=== PATIENT | male | born 1935 | race Caucasian/White ===

== ENCOUNTER 2016-12-07 05:53 | Day surgery (SDC) | payer MEDICARE, BC ==
[2016-12-07] MEDS ORDERED: Dextrose 5%-Lactated Ringers 1,000 ML IV SCH (06:00)
[2016-12-07] MEDS ORDERED: Propofol 200 MG/20 ML SDV ONE (07:14)
[2016-12-07] MEDS ORDERED: fentaNYL 100 MCG/2 ML SDV ONE (07:14)
[2016-12-07 09:16] VITALS: BP 164/92
--- NOTE | 2016-12-11 16:09 | OR ---
DATE OF PROCEDURE: 12/07/2016 PREOPERATIVE DIAGNOSIS: History of Mccann's esophagus. POSTOPERATIVE DIAGNOSES: 1. History of Mccann's esophagus. 2. Mild antral gastritis. OPERATIVE PROCEDURE: 1. Esophagogastroduodenoscopy with:. a. Biopsies of antrum for CLOtest. b. Biopsies of esophagogastric junction for histologic evaluation. ANESTHESIA: IV sedation. INDICATION FOR PROCEDURE: This is an 81-year-old male presenting with history of Mccann's esophagus for followup surveillance biopsies. Presently, he is on omeprazole mg b.i.d. and he has with that good symptom control of his reflux. The plan is to proceed with upper GI endoscopy with biopsies as indicated. Potential risks including bleeding and perforation were discussed, and the patient wishes to proceed. DETAILS OF PROCEDURE: The patient was taken to the operating room and placed in the left lateral decubitus position. IV sedation was administered, after which the upper GI endoscope was passed orally through the length of the esophagus into the stomach with retroflexion view of the fundus, thereafter through the pyloric channel and into the proximal duodenum. Findings included normal hypopharynx, larynx, upper esophageal sphincter, and esophageal body. At the EG junction, there was a fairly wide open esophagogastric junction with minimal hiatal hernia. There was some upward extension of the gastroesophageal junction mucosal line above the upper gastric folds consistent with some Mccann's esophagus. There was minimal gross inflammation. However, no signs of neoplastic changes or stricturing. Within the remainder of the stomach, there was a small amount of redness and patches in the antrum. The pyloric channel and duodenum to the junction of the third and fourth portions were unremarkable. The scope was then retracted back into the antrum where biopsies were obtained for CLOtest for H. pylori. Following this, multiple biopsies were obtained circumferentially from the esophagogastric junction and sent for histologic evaluation. Minimal bleeding from the biopsy sites was seen, and the procedure then concluded. Recommendation would be to continue the present PPI regimen. Should the CLOtest be positive, we would set him up on one of the anti H. pylori antibiotic regimens. Otherwise, assuming his health remains reasonably good, a repeat upper endoscopy should be performed in 2 years. Irwin Odell MD /[id number]
== END 2016-12-07 09:35 | disposition home or self-care (01) ==
LOC: JP.SDS 05:53
PROVIDERS: ATTEND Surgery
DX: K22.70 Barrett's esophagus without dysplasia (principal); K21.0 Gastro-esophageal reflux disease with esophagitis; E78.5 Hyperlipidemia, unspecified
CPT/HCPCS: 43239; 87081; 88305; J2704; J3010; J7042

== ENCOUNTER 2016-12-27 14:44 | Emergency (ER) | payer MEDICARE, BC ==
[2016-12-27 17:19] VITALS: BP 171/91
--- NOTE | 2016-12-27 17:33 | EDM.PDOC ---
ED HISTORY OF PRESENT ILLNESS - General Chief Complaint: Respiratory Problem Stated Complaint: COUGH, SINUS PRESSURE Time Seen by Provider: 12/27/16 17:32 Source: Reports: Patient, Family History Limitations: Reports: No limitations - History of Present Illness INITIAL COMMENTS - FREE TEXT/NARRATIVE: pt arrived with history of a cough that started 2 days ago, He states he is coughing up thick green sputum. He was placed on flomax and he is not able to tolerate it it makes him liteheaded. Timing/Duration: Reports: Hour(s):, Getting worse Severity: moderate Location, General: Reports: chest Associated Symptoms: Reports: cough, shortness of breath - Related Data Allergies/ADRs: Allergies Allergy/AdvReac Type Severity Reaction Status Date / Time tamsulosin Allergy Cannot Verified 12/27/16 17:24 Remember Home Meds: Home Meds Aspirin [Adult Low Dose Aspirin EC] 81 mg PO DAILY 04/22/14 [History] Multivitamin [Multi-Vitamin Daily] 1 tab PO DAILY 04/22/14 [History] Omeprazole 20 mg PO BID 04/22/14 [History] Simvastatin [Zocor] 20 mg PO BEDTIME 04/22/14 [History] Fluticasone Propionate [Flonase] 2 spray SANTIAGO DAILY 11/11/14 [History] Calcium Carbonate/Vitamin D3 [Calcium 600 + D3 Softgel] 1 tab PO DAILY 12/04/16 [History] Tamsulosin [Tamsulosin 24 Hr] 0.4 mg PO DAILY 12/04/16 [History] Terbinafine [LamISIL AT 1% Crm] 1 applic TOP BID 12/04/16 [History] Past Medical History HEENT History: Reports: Hard of hearing, Impaired vision Other HEENT History: wears glasses, bilat hearing aides Cardiovascular History: Reports: High cholesterol Gastrointestinal History: Reports: Colon polyp, GERD, Hemorrhoids, Other (see below) Other Gastrointestinal History: Mccann's esophagus Genitourinary History: Reports: BPH Musculoskeletal History: Reports: Fracture Dermatologic History: Reports: Other (see below) Other Dermatologic History: fungal infection toes - Infectious Disease History Infectious Disease History: Reports: Other (see below) Other Infectious Disease History: unable to obtain - Past Surgical History GI Surgical History: Reports: Colonoscopy, EGD, Hernia, inguinal, Polypectomy Social & Family History - Family History Family Medical History: Noncontributory - Tobacco Use Smoking Status *Q: Current Status Unknown Years of Tobacco use: 45 Used Tobacco, but Quit: Yes Month Tobacco Last Used: 1999 Second Hand Smoke Exposure: No - Caffeine Use Caffeine Use: Reports: Coffee - Alcohol Use Days Per Week of Alcohol Use: 0 - Recreational Drug Use Recreational Drug Use: No ED ROS GENERAL - Review of Systems Review Of Systems: See Below Constitutional: Reports: weakness HEENT: Reports: No symptoms Respiratory: Reports: Shortness of Breath, Wheezing, Cough Cardiovascular: Reports: No symptoms Endocrine: Reports: no symptoms GI/Abdominal: Reports: No symptoms : Reports: no symptoms Musculoskeletal: Reports: no symptoms Skin: Reports: no symptoms ED EXAM, GENERAL - Physical Exam Exam: See Below Free Text/Narrative:: Mk arrived with a history of a cough which started 2 days ago. He has not had a fever but he has hd some chilling. Exam Limited By: No limitations General Appearance: alert, anxious Ears: normal TMs Nose: normal inspection Throat/Mouth: Normal inspection Head: atraumatic Neck: normal inspection Respiratory/Chest: decreased breath sounds, wheezing Cardiovascular: regular rate, rhythm GI/Abdominal: soft, non tender (Male) Exam: Deferred Rectal (Males) Exam: Deferred Back Exam: CVA tenderness (L) Extremities: normal inspection Neurological: alert, oriented, normal cognition Course - Vital Signs Last Recorded V/S: Last Vital Signs Temp 37.2 C 12/27/16 17:18 Pulse 87 12/27/16 17:18 Resp 16 12/27/16 17:18 BP 171/91 H 12/27/16 17:18 Pulse Ox 96 12/27/16 17:18 - Orders/Labs/Meds Orders: Active Orders 24 hr Category Date Time Status RT Aerosol Therapy [RC] ASDIRECTED Care 12/27/16 17:42 Active Chest 1V Frontal [CR] Stat Exams 12/27/16 17:41 Taken Labs: Laboratory Tests 12/27/16 12/27/16 Range/Units 17:32 17:32 WBC 7.0 (4.5-11.0) K/uL RBC 3.89 L (4.30-5.90) M/uL Hgb 13.2 (12.0-15.0) g/dL Hct 38.0 L (40.0-54.0) % MCV 98 (80-98) fL MCH 34 H (27-31) pg MCHC 35 (32-36) % Plt Count 246 (150-400) K/uL Neut % (Auto) 79 H (36-66) % Lymph % (Auto) 9 L (24-44) % [place] % (Auto) 11 H (2-6) % Eos % (Auto) 0 L (2-4) % Baso % (Auto) 0 (0-1) % Sodium 136 L (140-148) mmol/L Potassium 4.1 (3.6-5.2) mmol/L Chloride 99 L (100-108) mmol/L Carbon Dioxide 25 (21-32) mmol/L Anion Gap 16.1 H (5.0-14.0) mmol/L BUN 13 (7-18) mg/dL Creatinine 0.8 (0.8-1.3) mg/dL Est Cr Clr Drug Dosing 66.56 mL/min Estimated GFR (MDRD) > 60 (>60) Glucose 119 H (74-106) mg/dL Calcium 9.0 (8.5-10.1) mg/dL Total Bilirubin 1.0 D (0.2-1.0) mg/dL AST 33 (15-37) U/L ALT 33 (12-78) U/L Alkaline Phosphatase 95 (46-116) U/L Total Protein 7.7 (6.4-8.2) g/dL Albumin 3.3 L (3.4-5.0) g/dL Globulin 4.4 H (2.3-3.5) g/dL Albumin/Globulin Ratio 0.8 L (1.2-2.2) Meds: Medications Discontinued Medications Generic Name Dose Route Start Last Admin Trade Name Freq PRN Reason Stop Dose Admin Albuterol 2.5 mg 12/27/16 17:42 12/27/16 18:15 Proventil Neb Soln NEB 12/27/16 17:43 2.5 mg ONETIME ONE Administration - Re-Assessments/Exams Free Text/Narrative Re-Assessment/Exam: 12/27/16 18:04 pt does not have a normal wbc. His chest xray does not show a infiltrate. He was given a albuterol neb. Departure - Departure Time of Disposition: 18:28 Disposition: Home, Self-Care 01 Condition: fair Clinical Impression: Bronchitis with bronchospasm Referrals: Rubina Dunlap NP [Primary Care Provider] - Forms: ED Department Discharge Care Plan Goals: albuterol inhaler 2 puffs with a small guard driver tid, zithromax 250mg 2 tabs now and 1 tab daily for 7 days. encourage fluids. - My Orders Last 24 Hours: My Active Orders 12/27/16 17:41 Chest 1V Frontal [CR] Stat 12/27/16 17:42 RT Aerosol Therapy [RC] ASDIRECTED - Assessment/Plan Last 24 Hours: My Active Orders 12/27/16 17:41 Chest 1V Frontal [CR] Stat 12/27/16 17:42 RT Aerosol Therapy [RC] ASDIRECTED
[2016-12-27] MEDS ORDERED: Albuterol 0.083% 2.5 MG/3 ML Neb Soln NEB ONE (17:42)
--- NOTE | 2016-12-28 08:52 | CR ---
Heart size within normal limits. No focal consolidation. Pulmonary vasculature within normal limits.
== END 2016-12-27 18:52 | disposition home or self-care (01) ==
LOC: JP.ED 14:44
DX: J20.9 Acute bronchitis, unspecified (principal); E78.00 Pure hypercholesterolemia, unspecified; K21.9 Gastro-esophageal reflux disease without esophagitis; Z98.890 Other specified postprocedural states; Z79.82 Long term (current) use of aspirin; Z79.899 Other long term (current) drug therapy; Z88.8 Allergy status to other drugs, medicaments and biological substances
CPT/HCPCS: 36415; 71010; 71010-26; 80053; 85025; 99283; 99284

== ENCOUNTER 2017-03-18 16:34 | Emergency (ER) | payer MEDICARE, BC ==
[2017-03-18 17:43] VITALS: BP 163/74
[2017-03-18] MEDS ORDERED: Diphtheria,Pertussis(Acell),Tetanus Vaccine 0.5 ML SDV IM ONE (18:36)
--- NOTE | 2017-03-18 18:44 | EDM.PDOC ---
ED HPI GENERAL MEDICAL PROBLEM - General Chief Complaint: Skin Complaint Stated Complaint: SLIVER 4 HAND Time Seen by Provider: 03/18/17 18:19 Source of Information: Reports: Patient History Limitations: Reports: No Limitations - History of Present Illness INITIAL COMMENTS - FREE TEXT/NARRATIVE: History of present illness: [81 YO male with sliver in thenar eminnence of the right hand. Just occured before coming in. Due for tetnas. ] Review of systems: As per history of present illness and below otherwise all systems reviewed and negative. Past medical history: As per history of present illness and as reviewed below otherwise noncontributory. Surgical history: As per history of present illness and as reviewed below otherwise noncontributory. Social history: No reported history of drug or alcohol abuse. Family history: As per history of present illness and as reviewed below otherwise noncontributory. Physical exam: HEENT: Atraumatic, normocephalic, Lungs: Clear to auscultation, Heart: S1S2, regular, Extremities: After 1% lidocaine infiltration, the wood sliver was removed by unroofing it with an 18 gauge needle and lifting it out in several pieces. It was about 1 cm long. Pt tolerated well. This was located as per HPI in the thenar emminence of the right hand. Neuro: Awake, alert, oriented. Diagnostics: [] Therapeutics: [Tdap] Impression: [FB removed from right hand] Plan: [Just bandaids and keep clean until healed. ] Definitive disposition and diagnosis as appropriate pending reevaluation and review of above. - Related Data Allergies Allergy/AdvReac Type Severity Reaction Status Date / Time tamsulosin Allergy Cannot Verified 12/27/16 17:24 Remember Home Meds: Home Meds Aspirin [Adult Low Dose Aspirin EC] 81 mg PO DAILY 04/22/14 [History] Multivitamin [Multi-Vitamin Daily] 1 tab PO DAILY 04/22/14 [History] Omeprazole 20 mg PO BID 04/22/14 [History] Simvastatin [Zocor] 20 mg PO BEDTIME 04/22/14 [History] Calcium Carbonate/Vitamin D3 [Calcium 600 + D3 Softgel] 1 tab PO DAILY 12/04/16 [History] Terbinafine [LamISIL AT 1% Crm] 1 applic TOP BID 12/04/16 [History] Past Medical History HEENT History: Reports: Hard of Hearing, Impaired Vision Other HEENT History: wears glasses, bilat hearing aides Cardiovascular History: Reports: High Cholesterol Gastrointestinal History: Reports: Colon Polyp, GERD, Hemorrhoids, Other (See Below) Other Gastrointestinal History: Mccann's esophagus Genitourinary History: Reports: BPH Musculoskeletal History: Reports: Fracture Dermatologic History: Reports: Other (See Below) Other Dermatologic History: fungal infection toes - Infectious Disease History Infectious Disease History: Reports: Other (See Below) Other Infectious Disease History: unable to obtain - Past Surgical History GI Surgical History: Reports: Colonoscopy, EGD, Hernia, Inguinal, Polypectomy Social & Family History - Family History Family Medical History: Noncontributory - Tobacco Use Smoking Status *Q: Never Smoker Years of Tobacco use: 45 Used Tobacco, but Quit: Yes Month Tobacco Last Used: 1999 Second Hand Smoke Exposure: No - Caffeine Use Caffeine Use: Reports: Coffee - Alcohol Use Days Per Week of Alcohol Use: 0 - Recreational Drug Use Recreational Drug Use: No ED ROS GENERAL - Review of Systems Review Of Systems: ROS reveals no pertinent complaints other than HPI. ED EXAM, SKIN/RASH Exam: See Below Course - Vital Signs Last Recorded V/S: Last Vital Signs Temp 36.8 C 03/18/17 17:42 Pulse 72 03/18/17 17:42 Resp 16 03/18/17 17:42 BP 163/74 H 03/18/17 17:42 Pulse Ox 95 03/18/17 17:42 - Orders/Labs/Meds Orders: Active Orders 24 hr Category Date Time Status Vaccines to be Administered [RC] PER UNIT ROUTINE Care 03/18/17 18:36 Ordered Diphth,Pertuss(Acell),Tet Vac [Adacel] Med 03/18/17 18:36 Once 0.5 ml IM .ONCE ONE Departure - Departure Time of Disposition: 18:44 Disposition: Home, Self-Care 01 Condition: good Clinical Impression: Superficial foreign body (sliver) - Discharge Information Forms: ED Department Discharge Additional Instructions: Keep clean and use bandaids until healed. - My Orders Last 24 Hours: My Active Orders 03/18/17 18:36 Vaccines to be Administered [RC] PER UNIT ROUTINE Diphth,Pertuss(Acell),Tet Vac [Adacel] 0.5 ml IM .ONCE ONE - Assessment/Plan Last 24 Hours: My Active Orders 03/18/17 18:36 Vaccines to be Administered [RC] PER UNIT ROUTINE Diphth,Pertuss(Acell),Tet Vac [Adacel] 0.5 ml IM .ONCE ONE
== END 2017-03-18 18:57 | disposition home or self-care (01) ==
LOC: JP.ED 16:34
DX: S60.551A Superficial foreign body of right hand, initial encounter (principal); H54.7 Unspecified visual loss; E78.00 Pure hypercholesterolemia, unspecified; K21.9 Gastro-esophageal reflux disease without esophagitis; Z79.899 Other long term (current) drug therapy; Z88.8 Allergy status to other drugs, medicaments and biological substances; W45.8XXA Other foreign body or object entering through skin, initial encounter; Z79.2 Long term (current) use of antibiotics; Z90.89 Acquired absence of other organs
CPT/HCPCS: 90471; 90715; 99283; 99283-25

== ENCOUNTER 2017-08-16 08:56 | Day surgery (SDC) | payer MEDICARE, BC ==
[~2017-08-16 08:56] MED LIST: Lidocaine 1% with EPINEPHrine 1:100,000 50 ML MDV ONE; Sodium Chloride 0.9% 10 ML ONE; Sodium Tetradecyl Sulfate 1% 20 MG/2 ML SDV ONE
[2017-08-16] MEDS ORDERED: Propofol 200 MG/20 ML SDV ONE ×2 (09:36→11:46)
[2017-08-16] MEDS ORDERED: fentaNYL 100 MCG/2 ML SDV ONE ×2 (09:36→11:34)
[2017-08-16] MEDS ORDERED: Sodium Chloride 0.9% 1,000 ML IV SCH (09:45)
[2017-08-16] MEDS ORDERED: Lidocaine 1% w/EPINEPHrine 50 ML, Sodium Bicarbonate 5 MEQ in Sodium Chloride 0.9% 950 ML INJECT SCH (10:30)
[2017-08-16 13:55] VITALS: BP 168/78
--- NOTE | 2017-08-16 14:59 | OR ---
DATE OF PROCEDURE: 08/16/2017 PROCEDURES: 1. Radiofrequency ablation of left greater saphenous vein. 2. Radiofrequency ablation of right greater saphenous vein. 3. Sclerotherapy of left leg, multiple. 4. Sclerotherapy of right leg, multiple. 5. Compression wrapping of left leg (04306). 6. Compression wrapping of right leg ([id number]). RISKS: Risks, benefits, alternatives, and limitations including, but not limited to infection, bleeding, and DVT formation were explained to the patient, who wished to proceed. PREOPERATIVE DIAGNOSIS: Venous/varicose vein insufficiency with inflammation and pain. POSTOPERATIVE DIAGNOSIS: Venous/varicose vein insufficiency with inflammation and pain. PROCEDURE IN DETAIL: The patient was placed in supine position. The left GSV was then identified and accessed at the level of the ankle first. This was accessed using a 21-gauge needle exchanged for a 35,000th wire, then exchanged for a 7-Serbian sheath. The RFA probe was advanced to 3 cm from the saphenofemoral junction. This would be injected in a 1-cm jacket around this and verified a second and third time. Direct even pressure was applied proximally, distally, and x1 in all other segments. The sheath and device were then removed. The right leg was then performed in the same manner, same fashion, same technique, using the same sequence, and the same equipment. Sclerotherapy was performed on left and right legs using 0.33% sodium tetradecyl, there was 6 on the right and 6 on the left. This was always drawn back to ensure intravascular injection only. No more than 2 mL was injected in one location. Two-stage compression wrapping was then performed on left and right legs using the two-stage system in a [id number] manner proximally to distally. The patient tolerated the procedure well. Rian Serrato MD /[id number]
== END 2017-08-16 13:45 | disposition home or self-care (01) ==
LOC: JP.SDS 08:56
PROVIDERS: ATTEND Surgery
DX: I87.2 Venous insufficiency (chronic) (peripheral) (principal); I83.813 Varicose veins of bilateral lower extremities with pain; I83.11 Varicose veins of right lower extremity with inflammation; I83.12 Varicose veins of left lower extremity with inflammation; K21.9 Gastro-esophageal reflux disease without esophagitis; N40.0 Benign prostatic hyperplasia without lower urinary tract symptoms; Z98.890 Other specified postprocedural states; Z88.8 Allergy status to other drugs, medicaments and biological substances
CPT/HCPCS: 29581; 36471; 36475; J1642; J2704; J3010; J7040; J7050; J3490

== ENCOUNTER 2018-03-03 16:41 | Emergency (ER) | payer MEDICARE, BC ==
[2018-03-03 17:41] VITALS: BP 161/73
--- NOTE | 2018-03-03 18:31 | EDM.PDOC ---
ED HPI GENERAL MEDICAL PROBLEM - General Chief Complaint: Skin Complaint Stated Complaint: L HAND Time Seen by Provider: 03/03/18 18:20 Source of Information: Reports: Patient, RN Notes Reviewed History Limitations: Reports: No Limitations - History of Present Illness INITIAL COMMENTS - FREE TEXT/NARRATIVE: 82-year-old gentleman presents to the emergency department for wound check on his left hand he recently had sutures removal 3 days prior he is just concerned that the wound is healing properly no symptoms at this time - Related Data Allergies Allergy/AdvReac Type Severity Reaction Status Date / Time tamsulosin Allergy Cannot Verified 08/16/17 09:39 Remember Home Meds: Home Meds Aspirin [Adult Low Dose Aspirin EC] 81 mg PO DAILY 04/22/14 [History] Multivitamin [Multi-Vitamin Daily] 1 tab PO DAILY 04/22/14 [History] Omeprazole 20 mg PO DAILY 04/22/14 [History] Simvastatin [Zocor] 20 mg PO BEDTIME 04/22/14 [History] Calcium Carbonate/Vitamin D3 [Calcium 600 + D3 Softgel] 1 tab PO DAILY 12/04/16 [History] Terbinafine [LamISIL AT 1% Crm] 1 applic TOP BID 12/04/16 [History] Past Medical History HEENT History: Reports: Hard of Hearing, Impaired Vision Other HEENT History: wears glasses, bilat hearing aides Cardiovascular History: Reports: High Cholesterol Gastrointestinal History: Reports: Colon Polyp, GERD, Hemorrhoids, Other (See Below) Other Gastrointestinal History: Mccann's esophagus Genitourinary History: Reports: BPH Musculoskeletal History: Reports: Fracture Dermatologic History: Reports: Other (See Below) Other Dermatologic History: fungal infection toes - Infectious Disease History Infectious Disease History: Reports: Chicken Pox, Measles, Other (See Below) Other Infectious Disease History: Lyme's - Past Surgical History HEENT Surgical History: Reports: None Cardiovascular Surgical History: Reports: None GI Surgical History: Reports: Colonoscopy, EGD, Hernia, Inguinal, Polypectomy Male Surgical History: Reports: None Musculoskeletal Surgical History: Reports: None Social & Family History - Family History Family Medical History: Noncontributory - Tobacco Use Smoking Status *Q: Former Smoker Used Tobacco, but Quit: Yes Month/Year Tobacco Last Used: 17 years ago - Caffeine Use Caffeine Use: Reports: None - Recreational Drug Use Recreational Drug Use: No ED ROS GENERAL - Review of Systems Review Of Systems: See Below Constitutional: Reports: No Symptoms Musculoskeletal: Reports: No Symptoms Skin: Reports: Wound ED EXAM, SKIN/RASH Exam: See Below Text/Narrative:: Examination of the left hand he does have a small extra this well healing over the thenar eminence is not tender to the touch all sutures have been removed there is no erythema around the wound radial pulse is +2 full range of motion all digits sensation is intact Exam Limited By: No Limitations General Appearance: Alert, WD/WN, No Apparent Distress Course - Vital Signs Last Recorded V/S: Last Vital Signs Temp 98.2 F 03/03/18 17:46 Pulse 96 03/03/18 17:46 Resp 16 03/03/18 17:46 BP 161/73 H 03/03/18 17:46 Pulse Ox 96 03/03/18 17:46 Departure - Departure Time of Disposition: 18:30 Disposition: Home, Self-Care 01 Condition: Good Clinical Impression: Visit for wound check - Discharge Information Referrals: PCP,None [Primary Care Provider] - Additional Instructions: (Follow wound care instruction sheet, follow-up with primary care as needed - Assessment/Plan Plan: Assessment Acuity = acute Site and laterality = post suture removal day 3 for laceration of the left hand Etiology = secondary trauma Manifestations = none Location of injury = Home Lab values = none Plan Follow-up with primary care as needed This note was dictated using [employer] voice recognition software please call with any questions on syntax or grammar.
== END 2018-03-03 18:35 | disposition home or self-care (01) ==
LOC: JP.ED 16:41
DX: S61.412D Laceration without foreign body of left hand, subsequent encounter (principal); Z87.891 Personal history of nicotine dependence; E78.00 Pure hypercholesterolemia, unspecified; Z79.82 Long term (current) use of aspirin; Z79.899 Other long term (current) drug therapy; Z88.8 Allergy status to other drugs, medicaments and biological substances; X58.XXXD Exposure to other specified factors, subsequent encounter
CPT/HCPCS: 99283

== ENCOUNTER 2019-07-31 19:26 | Inpatient (IN) | payer BC, MEDICAID, MEDICARE ==
--- NOTE | 2019-07-31 19:34 | EDM.PDOC ---
ED HPI GENERAL MEDICAL PROBLEM - General Chief Complaint: General Stated Complaint: [facility] Time Seen by Provider: 07/31/19 19:28 Source of Information: Reports: Patient, EMS, Old Records History Limitations: Reports: Other (patient with mild dementia) - History of Present Illness INITIAL COMMENTS - FREE TEXT/NARRATIVE: 84 yo male lives alone. Daughter was unable to reach him by phone for the last several hrs so went to check on him and found him on the floor. He was not able to tell how he ended up on the floor. Pain was not reported to EMS, but they noted lung congestion and low oxygen sats requiring oxygen therapy en route. Onset: Today Onset Date: 07/31/19 Duration: Hour(s):, Constant Location: Reports: Generalized Quality: Reports: Other (no pain reported.) Severity: Moderate Improves with: Reports: None Worsens with: Reports: Other (uncertain) Context: Reports: Other (See HPI) Associated Symptoms: Reports: No Other Symptoms Treatments TOOL LIAISON: Reports: Oxygen - Related Data Allergies Allergy/AdvReac Type Severity Reaction Status Date / Time tamsulosin Allergy Cannot Verified 08/16/17 09:39 Remember Home Meds: Home Meds Aspirin [Adult Low Dose Aspirin EC] 81 mg PO DAILY 04/22/14 [History] Multivitamin [Multi-Vitamin Daily] 1 tab PO DAILY 04/22/14 [History] Omeprazole 20 mg PO DAILY 04/22/14 [History] Simvastatin [Zocor] 20 mg PO BEDTIME 04/22/14 [History] Calcium Carbonate/Vitamin D3 [Calcium 600 + D3 Softgel] 1 tab PO DAILY 12/04/16 [History] Terbinafine [LamISIL AT 1% Crm] 1 applic TOP BID 12/04/16 [History] Donepezil HCl 5 mg PO BEDTIME 07/31/19 [History] Past Medical History HEENT History: Reports: Hard of Hearing, Impaired Vision Other HEENT History: wears glasses, bilat hearing aides Cardiovascular History: Reports: High Cholesterol Gastrointestinal History: Reports: Colon Polyp, GERD, Hemorrhoids, Other (See Below) Other Gastrointestinal History: Mccann's esophagus Genitourinary History: Reports: BPH Musculoskeletal History: Reports: Fracture Dermatologic History: Reports: Other (See Below) Other Dermatologic History: fungal infection toes - Infectious Disease History Infectious Disease History: Reports: Chicken Pox, Measles, Other (See Below) Other Infectious Disease History: Lyme's - Past Surgical History HEENT Surgical History: Reports: None Cardiovascular Surgical History: Reports: None GI Surgical History: Reports: Colonoscopy, EGD, Hernia, Inguinal, Polypectomy Male Surgical History: Reports: None Musculoskeletal Surgical History: Reports: None Social & Family History - Family History Family Medical History: Noncontributory - Caffeine Use Caffeine Use: Reports: None ED ROS GENERAL - Review of Systems Review Of Systems: See Below (ROS not reliable due to dementia) HEENT: Reports: No Symptoms Respiratory: Reports: No Symptoms Cardiovascular: Reports: No Symptoms GI/Abdominal: Reports: No Symptoms : Reports: No Symptoms Musculoskeletal: Reports: No Symptoms Skin: Reports: No Symptoms Neurological: Reports: No Symptoms Psychiatric: Reports: No Symptoms Hematologic/Lymphatic: Reports: No Symptoms ED EXAM, GENERAL - Physical Exam Exam: See Below Exam Limited By: No Limitations General Appearance: Alert, WD/WN, No Apparent Distress Eye Exam: Bilateral Eye: Normal Inspection Ears: Normal External Exam, Normal Canal, Hearing Grossly Normal, Normal TMs, Other (large amt of cerumen present) Ear Exam: Bilateral Ear: Auricle Normal, Canal Normal, TM normal Nose: Normal Inspection, No Blood Throat/Mouth: Normal Inspection, Normal Lips, Normal Oropharynx, Normal Voice, No Airway Compromise Head: Atraumatic, Normocephalic Neck: Normal Inspection, Non-Tender Respiratory/Chest: No Respiratory Distress, No Accessory Muscle Use, Rhonchi. No: Wheezing Cardiovascular: Regular Rate, Rhythm, No Edema GI/Abdominal: Normal Bowel Sounds, Soft, Non-Tender, No Distention Back Exam: Normal Inspection. No: CVA Tenderness (R), CVA Tenderness (L) Extremities: Normal Inspection, Normal Range of Motion, Non-Tender, No Pedal Edema Neurological: Alert, CN II-XII Intact, No Motor/Sensory Deficits, Other (mild dementia) Psychiatric: Normal Affect, Normal Mood Skin Exam: Warm, Dry, Intact, Normal Color, No Rash Course - Vital Signs Text/Narrative:: Dr. Clint leahy @ Last Recorded V/S: Last Vital Signs Temp 37.1 C 07/31/19 19:36 Pulse 100 07/31/19 20:18 Resp 28 H 07/31/19 20:18 BP 131/66 07/31/19 20:18 Pulse Ox 92 L 07/31/19 20:18 - Orders/Labs/Meds Orders: Active Orders 24 hr Category Date Time Status CULTURE BLOOD [BC] Stat Lab 07/31/19 20:01 Received UA W/MICROSCOPIC [URIN] Stat Lab 07/31/19 19:37 Ordered Lactated Ringers [Ringers, Lactated] 1,000 ml Med 07/31/19 19:55 Active IV BOLUS Sodium Chloride 0.9% [Saline Flush] Med 07/31/19 19:38 Active 10 ml FLUSH ASDIRECTED PRN Blood Culture x2 Reflex Set [OM.PC] Urgent Oth 07/31/19 19:57 Ordered Saline Lock Insert [OM.PC] Routine Oth 07/31/19 19:38 Ordered Medication Orders Lactated Ringer's (Ringers, Lactated) 1,000 mls @ 1,000 mls/hr IV BOLUS ONE Stop: 07/31/19 20:54 Last Admin: 07/31/19 20:00 Dose: 1,000 mls/hr Sodium Chloride (Saline Flush) 10 ml FLUSH ASDIRECTED PRN PRN Reason: Keep Vein Open Last Admin: 07/31/19 19:53 Dose: 10 ml Labs: Laboratory Tests 07/31/19 07/31/19 07/31/19 Range/Units 19:40 19:40 19:59 WBC 19.7 H (4.5-11.0) K/uL RBC 4.31 (4.30-5.90) M/uL Hgb 15.4 H D (12.0-15.0) g/dL Hct 42.7 (40.0-54.0) % MCV 99 H (80-98) fL MCH 36 H (27-31) pg MCHC 36 (32-36) % Plt Count 165 (150-400) K/uL Sodium 136 L (140-148) mmol/L Potassium 3.5 L (3.6-5.2) mmol/L Chloride 99 L (100-108) mmol/L Carbon Dioxide 25 (21-32) mmol/L Anion Gap 15.5 H (5.0-14.0) mmol/L BUN 49 H D (7-18) mg/dL Creatinine 1.5 H D (0.8-1.3) mg/dL Est Cr Clr Drug Dosing TNP Estimated GFR (MDRD) 44 L (>60) Glucose 108 H (74-106) mg/dL Lactic Acid 3.4 H (0.4-2.0) mmol/L Calcium 9.5 (8.5-10.1) mg/dL Troponin I < 0.017 (0.000-0.056) ng/mL Meds: Medications Generic Name Dose Route Start Last Admin Trade Name Freq PRN Reason Stop Dose Admin Lactated Ringer's 1,000 mls @ 1,000 mls/hr 07/31/19 19:55 07/31/19 20:00 Ringers, Lactated IV 07/31/19 20:54 1,000 mls/hr BOLUS ONE Administration Sodium Chloride 10 ml 07/31/19 19:38 07/31/19 19:53 Saline Flush FLUSH 10 ml ASDIRECTED PRN Administration Keep Vein Open Discontinued Medications Generic Name Dose Route Start Last Admin Trade Name Freq PRN Reason Stop Dose Admin Ceftriaxone Sodium 1 gm/ 50 mls @ 100 mls/hr 07/31/19 19:58 07/31/19 20:18 Sodium Chloride IV 07/31/19 20:27 100 mls/hr ONETIME ONE Administration - Radiology Interpretation Free Text/Narrative:: CXR-R lower lung field involved with pneumonia. Departure - Departure Time of Disposition: 20:34 Disposition: Admitted As Inpatient 65 Condition: Poor Clinical Impression: Elevated lactic acid level, Dehydration, Low oxygen saturation Pneumonia Qualifiers: Pneumonia type: due to unspecified organism Laterality: right Lung location: lower lobe of lung Qualified Code(s): J18.1 - Lobar pneumonia, unspecified organism - Discharge Information *PRESCRIPTION DRUG MONITORING PROGRAM REVIEWED*: No *COPY OF PRESCRIPTION DRUG MONITORING REPORT IN PATIENT YANDY: No Referrals: PCP,None [Primary Care Provider] - Forms: ED Department Discharge - My Orders Last 24 Hours: My Active Orders 07/31/19 19:37 UA W/MICROSCOPIC [URIN] Stat 07/31/19 19:38 Sodium Chloride 0.9% [Saline Flush] 10 ml FLUSH ASDIRECTED PRN Saline Lock Insert [OM.PC] Routine 07/31/19 19:55 Lactated Ringers [Ringers, Lactated] 1,000 ml IV BOLUS 07/31/19 19:57 Blood Culture x2 Reflex Set [OM.PC] Urgent 07/31/19 20:01 CULTURE BLOOD [BC] Stat - Assessment/Plan Last 24 Hours: My Active Orders 07/31/19 19:37 UA W/MICROSCOPIC [URIN] Stat 07/31/19 19:38 Sodium Chloride 0.9% [Saline Flush] 10 ml FLUSH ASDIRECTED PRN Saline Lock Insert [OM.PC] Routine 07/31/19 19:55 Lactated Ringers [Ringers, Lactated] 1,000 ml IV BOLUS 07/31/19 19:57 Blood Culture x2 Reflex Set [OM.PC] Urgent 07/31/19 20:01 CULTURE BLOOD [BC] Stat
[2019-07-31] MEDS: Sodium Chloride 0.9% 10 ML Syringe FLUSH PRN (19:53)
[2019-07-31] MEDS ORDERED: Lactated Ringers 1,000 ML IV ONE (19:55)
[2019-07-31] MEDS ORDERED: cefTRIAXone 1 GM in Sodium Chloride 0.9% 50 ML IV ONE (19:58)
--- NOTE | 2019-07-31 20:25 | CRLCR ---
HISTORY: Hypoxia. Weakness. Cough. COMPARISON: 12/27/2016 FINDINGS: A portable erect AP view of the chest was obtained at 1954 hours. There is new moderate consolidation of the right lung base along with a mild right pleural effusion. There is mild patchy infiltrate throughout the lower half of the right chest. The findings are consistent with right lower lobe pneumonia. The upper portion of the right chest is clear. The left lung remains clear. The heart remains normal in size. The mediastinum is normal in appearance. 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 The rest of the osseous structures are normal in appearance. IMPRESSION: Findings consistent with a mild right lower lobe pneumonia with small right pleural effusion. Dictated by Zoltan Houston MD @ Jul 31 2019 8:22PM Signed by Dr. Zoltan Houston @ Jul 31 2019 8:23PM
[2019-08-01] MEDS: Azithromycin 250 MG Tab PO SCH ×2 (00:18→20:11)
[2019-08-01] MEDS: Sodium Chloride 0.9% 1,000 ML IV SCH ×2 (00:29→08:26)
[2019-08-01] MEDS: Acetaminophen 325 MG Tab PO PRN (00:34)
--- NOTE | 2019-08-01 01:13 | HP ---
CHIEF COMPLAINT: Weakness. HISTORY OF PRESENT ILLNESS: An 84-year-old, who had been doing well according to his daughters with him today, normally stays up late and then will sleep late. She went and checked on him in the morning when he was otherwise doing okay, but was still tired and was going to go back to bed. She checked on him in the afternoon, did not get an answer, which was unusual. She went over to his house and found him on the floor. It looked like he had been there for some time next to his bed. He denied any pain, but states that he was weak and could not get up on his own. She called the ambulance, brought him into the emergency room for further evaluation, was noted to have right-sided pneumonia. The patient was started on IV Rocephin and I was asked to admit the patient for further evaluation and treatment. The patient really denies any significant shortness of breath or chest pain and has not really been coughing. Otherwise, no other complaints, just mainly the weakness. PAST MEDICAL HISTORY: 1. He has late-onset dementia and has recently been started on donepezil. 2. Hyperlipidemia. 3. Gastroesophageal reflux disease. 4. History of adenomatous colon polyps. 5. BPH. 6. 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 7. Hyperglycemia. 8. Hearing loss. 9. Elevated bilirubin. CURRENT MEDICATIONS: Donepezil 5 mg at bedtime, simvastatin 40 mg at bedtime, omeprazole 20 mg daily, Lamisil cream p.r.n., calcium with vitamin D 2 tablets daily, Flonase nasal spray 2 sprays in each nostril daily, multivitamin, aspirin 81 mg daily. ALLERGIES: TAMSULOSIN. SOCIAL HISTORY: Remote smoker. He is an alcoholic. He has been going to for over 40 years. FAMILY HISTORY: Noncontributory. REVIEW OF SYSTEMS: Denies headaches, vision changes, upper respiratory symptoms. No chest pain, shortness of breath, cough, nausea, vomiting, diarrhea, constipation. He does state he has hard time getting to the bathroom on time, but denies any hematuria or dysuria. Denies any swelling in his legs. No skin problems. He does report generalized weakness that he could not get up today. OBJECTIVE: VITAL SIGNS: Weight 72.6 kg, pulse 100, blood pressure 120/62, respirations 25- 33, O2 saturation 90% on room air, now it is 93 on 3 L. HEENT: Ears: Have a little bit of wax, but unremarkable. Pharynx: Has dentures which are not currently in, otherwise, pharynx is clear. NECK: Supple. No adenopathy, thyromegaly, JVD, or carotid bruits. LUNGS: He has significant rhonchi in the right base. HEART: Regular without murmurs. ABDOMEN: Soft, nontender. No mass or organomegaly palpated. EXTREMITIES: He has just mild edema in his ankles. SKIN: Negative. NEURO: Cranial nerves 2-12 are grossly intact, but did appear to be somewhat confused. I am not sure what his baseline is. DIAGNOSTIC DATA: Chest x-ray shows right-sided pneumonia. LABORATORY DATA: White count is elevated at 19,000, hemoglobin 15.4, platelets 165,000. Sodium 136, potassium 3.5, chloride 99, BUN is 49, creatinine 1.5, glucose 108. Troponin less than 0.017. Urinalysis did have protein, but no significant white or red cells. ASSESSMENT AND PLAN: 1. Pneumonia. We will admit him. The patient already started on IV Rocephin, we will add oral Zithromax. 2. Dehydration with elevated renal function. We do not have any recent renal function to compare with, but it does appear to be a little bit dry. Continue with IV fluids that have been started in the emergency room. It looks like based on hospital records, he does not want to have any heroic measures. We will make him DNR/DNI, but we will otherwise treat. 3. Late-onset dementia that may not be a safe environment for him to go home. Apparently, still drives, which is a concern. Other medical problems as listed above. German Jaramillo MD /[id number]
[2019-08-01] MEDS: Pantoprazole 40 MG Tab.CR PO SCH (08:57)
[2019-08-01] MEDS: Multivitamins with Iron/Calcium/Folic Acid/Minerals Tab PO SCH (08:58)
[2019-08-01] MEDS: Calcium Carbonate/Vitamin D3 1500 MG-400 Units Tab PO SCH (08:58)
[2019-08-01] MEDS: Aspirin 81 MG Tab.EC PO SCH (08:58)
[2019-08-01] MEDS ORDERED: TERBINAFINE TOP SCH (09:00)
--- NOTE | 2019-08-01 09:46 | PCM.PN ---
- General Info Date of Service: 08/01/19 Subjective Update: There were no acute events overnight following admission. He is off supplemental oxygen as of this morning. He has a mild cough which is currently not productive. He did have a fever last night after admission. Says that he feels well. Appetite is good. White count is better. Kidney function is better. Lactic acid level has normalized. Functional Status: Reports: Pain Controlled, Tolerating Diet - Review of Systems Pulmonary: Reports: Shortness of Breath, Cough - Patient Data Vitals - Most Recent: Last Vital Signs Temp 37.4 C 08/01/19 07:43 Pulse 89 08/01/19 07:43 Resp 26 H 08/01/19 07:43 BP 117/63 08/01/19 07:43 Pulse Ox 92 L 08/01/19 07:43 Weight - Most Recent: 71.486 kg I&O - Last 24 Hours: Intake & Output 07/31/19 08/01/19 08/01/19 22:59 06:59 14:59 Intake Total 1343 240 Output Total 100 275 Balance -100 1068 240 Lab Results Last 24 Hours: Laboratory Results - last 24 hr 07/31/19 07/31/19 07/31/19 Range/Units 19:40 19:40 19:59 WBC 19.7 H (4.5-11.0) K/uL RBC 4.31 (4.30-5.90) M/uL Hgb 15.4 H D (12.0-15.0) g/dL Hct 42.7 (40.0-54.0) % MCV 99 H (80-98) fL MCH 36 H (27-31) pg MCHC 36 (32-36) % Plt Count 165 (150-400) K/uL Sodium 136 L (140-148) mmol/L Potassium 3.5 L (3.6-5.2) mmol/L Chloride 99 L (100-108) mmol/L Carbon Dioxide 25 (21-32) mmol/L Anion Gap 15.5 H (5.0-14.0) mmol/L BUN 49 H D (7-18) mg/dL Creatinine 1.5 H D (0.8-1.3) mg/dL Est Cr Clr Drug Dosing TNP Estimated GFR (MDRD) 44 L (>60) Glucose 108 H (74-106) mg/dL Lactic Acid 3.4 H (0.4-2.0) mmol/L Calcium 9.5 (8.5-10.1) mg/dL Troponin I < 0.017 (0.000-0.056) ng/mL Urine Color (YELLOW) Urine Appearance (CLEAR) Urine pH (5.0-8.0) Ur Specific [place] (1.008-1.030) Urine Protein (NEGATIVE) mg/dL Urine Glucose (UA) (NEGATIVE) mg/dL Urine Ketones (NEGATIVE) mg/dL Urine Occult Blood (NEGATIVE) Urine Nitrite (NEGATIVE) Urine Bilirubin (NEGATIVE) Urine Urobilinogen (0.2-1.0) EU/dL Ur Leukocyte Esterase (NEGATIVE) Urine RBC (0-5) Urine WBC (0-5) Ur Epithelial Cells Amorphous Sediment Urine Bacteria Urine Mucus 07/31/19 08/01/19 08/01/19 Range/Units 20:48 05:00 05:00 WBC 13.9 H (4.5-11.0) K/uL RBC 3.73 L (4.30-5.90) M/uL Hgb 12.7 D (12.0-15.0) g/dL Hct 37.5 L (40.0-54.0) % MCV 101 H (80-98) fL MCH 34 H (27-31) pg MCHC 34 (32-36) % Plt Count 174 (150-400) K/uL Sodium 137 L (140-148) mmol/L Potassium 3.3 L (3.6-5.2) mmol/L Chloride 103 (100-108) mmol/L Carbon Dioxide 24 (21-32) mmol/L Anion Gap 13.3 (5.0-14.0) mmol/L BUN 38 H (7-18) mg/dL Creatinine 1.1 (0.8-1.3) mg/dL Est Cr Clr Drug Dosing 45.79 Estimated GFR (MDRD) > 60 (>60) Glucose 91 (74-106) mg/dL Lactic Acid (0.4-2.0) mmol/L Calcium 8.9 (8.5-10.1) mg/dL Troponin I (0.000-0.056) ng/mL Urine Color [place] A (YELLOW) Urine Appearance Slightly cloudy A (CLEAR) Urine pH 7.0 (5.0-8.0) Ur Specific [place] 1.020 (1.008-1.030) Urine Protein 100 H (NEGATIVE) mg/dL Urine Glucose (UA) Negative (NEGATIVE) mg/dL Urine Ketones Trace H (NEGATIVE) mg/dL Urine Occult Blood Large H (NEGATIVE) Urine Nitrite Negative (NEGATIVE) Urine Bilirubin Negative (NEGATIVE) Urine Urobilinogen >=8.0 H (0.2-1.0) EU/dL Ur Leukocyte Esterase Negative (NEGATIVE) Urine RBC 0-5 (0-5) Urine WBC 0-5 (0-5) Ur Epithelial Cells Rare Amorphous Sediment Not seen Urine Bacteria Few Urine Mucus Few Med Orders - Current: Current Medications Acetaminophen (Tylenol) 650 mg PO Q4H PRN PRN Reason: Pain (Mild 1-3)/fever Last Admin: 08/01/19 00:34 Dose: 650 mg Aspirin (Halfprin) 81 mg PO DAILY [facility] Last Admin: 08/01/19 08:58 Dose: 81 mg Azithromycin (Zithromax) 500 mg PO BEDTIME [facility] Last Admin: 08/01/19 00:18 Dose: 500 mg Calcium Carbonate (Caltrate 600+D 1500 Mg-400 Units) 1 tab PO DAILY [facility] Last Admin: 08/01/19 08:58 Dose: 1 tab Donepezil HCl (Aricept) 5 mg PO BEDTIME [facility] Ceftriaxone Sodium 1 gm/ (Sodium Chloride) 50 mls @ 100 mls/hr IV Q24H [facility] Multivitamins/Minerals (Thera M Plus) 1 tab PO DAILY [facility] Last Admin: 08/01/19 08:58 Dose: 1 tab Non-Formulary Medication (Terbinafine [Lamisil At 1% Crm]) 1 applic TOP BID [facility] Pantoprazole Sodium (Protonix) 40 mg PO ACBREAKFAST [facility] Last Admin: 08/01/19 08:57 Dose: 40 mg Simvastatin (Zocor) 20 mg PO BEDTIME [facility] Sodium Chloride (Saline Flush) 10 ml FLUSH ASDIRECTED PRN PRN Reason: Keep Vein Open Last Admin: 07/31/19 19:53 Dose: 10 ml Discontinued Medications Lactated Ringer's (Ringers, Lactated) 1,000 mls @ 1,000 mls/hr IV BOLUS ONE Stop: 07/31/19 20:54 Last Admin: 07/31/19 20:00 Dose: 1,000 mls/hr Ceftriaxone Sodium 1 gm/ (Sodium Chloride) 50 mls @ 100 mls/hr IV ONETIME ONE Stop: 07/31/19 20:27 Last Admin: 07/31/19 20:18 Dose: 100 mls/hr Sodium Chloride (Normal Saline) 1,000 mls @ 125 mls/hr IV ASDIRECTED [place]YSIA Last Admin: 08/01/19 08:26 Dose: 125 mls/hr - Exam Quality Assessment: No: Supplemental Oxygen General: Alert, Oriented, Cooperative, No Acute Distress Lungs: Normal Respiratory Effort, Crackles (right lung base). No: Wheezing Cardiovascular: Regular Rate, Regular Rhythm GI/Abdominal Exam: Soft, No Distention Extremities: No Pedal Edema. No: Increased Warmth Peripheral Pulses: 2+: Dorsalis Pedis (L), Dorsalis Pedis (R) Skin: Warm, Dry Psy/Mental Status: Alert, Normal Affect - Problem List & Annotations (1) Pneumonia SNOMED Code(s): 760781968 Code(s): J18.9 - PNEUMONIA, UNSPECIFIED ORGANISM Status: Acute Current Visit: Yes Qualifiers: Pneumonia type: due to unspecified organism Laterality: right Lung location: lower lobe of lung Qualified Code(s): J18.1 - Lobar pneumonia, unspecified organism (2) Sepsis SNOMED Code(s): 10721930 Code(s): A41.9 - SEPSIS, UNSPECIFIED ORGANISM Status: Acute Current Visit : Yes Qualifiers: Sepsis type: sepsis due to unspecified organism Sepsis acute organ dysfunction status: with acute organ dysfunction Severe sepsis acute organ dysfunction type: acute renal failure Acute renal failure type: unspecified Severe sepsis shock status: without septic shock Qualified Code(s): A41.9 - Sepsis, unspecified organism; R65.20 - Severe sepsis without septic shock; N17.9 - Acute kidney failure, unspecified (3) Hypokalemia SNOMED Code(s): 31078876 Code(s): E87.6 - HYPOKALEMIA Status: Acute Current Visit: Yes (4) Alzheimer's dementia without behavioral disturbance SNOMED Code(s): 93223282 Code(s): G30.9 - ALZHEIMER'S DISEASE, UNSPECIFIED; F02.80 - DEMENTIA IN OTH DISEASES CLASSD ELSWHR W/O BEHAVRL DISTURB Status: Chronic Current Visit: Yes Qualifiers: Alzheimer's disease onset: late-onset Qualified Code(s): G30.1 - Alzheimer' s disease with late onset; F02.80 - Dementia in other diseases classified elsewhere without behavioral disturbance - Problem List Review Problem List Initiated/Reviewed/Updated: Yes - My Orders Last 24 Hours: My Active Orders 08/01/19 07:49 PT Evaluation and Treatment [CONS] Routine 08/01/19 09:45 LACTIC ACID [CHEM] Routine Potassium Chloride [Klor-Con M20] 40 meq PO BID Convert IV to Saline Lock [OM.PC] Routine - Plan Plan:: ASSESSMENT AND PLAN - Right lower lobe pneumonia with sepsis - complicated by acute respiratory failure with hypoxia. Sepsis has resolved. He is off supplemental oxygen as of this morning. Still coughing and still little short of breath but otherwise seems to be stabilizing. Cultures pending. Kidney function improving. -Continue ceftriaxone and azithromycin -Saline lock IV -Follow-up cultures -Supplement oxygen if needed Hypokalemia - mild reduction. -Supplement today and recheck in the morning Alzheimer's dementia - no behavior issues. -Continue donepezil Maintenance issues - - DVT prophylaxis - SCDs - GI prophylaxis - PPI - Nutrition - regular - Arreola catheter - not indicated Disposition - I would anticipate discharge home versus possibly the [facility] after the hospital stay Yeison Sloan M.D.
[2019-08-01] MEDS: Potassium Chloride 20 MEQ Tab.ER PO SCH ×2 (11:52→18:06)
[2019-08-01] MEDS: cefTRIAXone 1 GM in Sodium Chloride 0.9% 50 ML IV SCH (19:29)
[2019-08-01] MEDS: Sodium Chloride 0.9% 10 ML Syringe FLUSH PRN (19:30)
[2019-08-01] MEDS: Simvastatin 20 MG Tab PO SCH (20:11)
[2019-08-01] MEDS: Donepezil 10 MG Tab PO SCH (20:11)
[2019-08-01] MEDS: Lactobacillus Rhamnosus GG (Probiotic) Cap PO SCH (22:20)
[2019-08-02] MEDS: Pantoprazole 40 MG Tab.CR PO SCH (07:52)
[2019-08-02] MEDS: Calcium Carbonate/Vitamin D3 1500 MG-400 Units Tab PO SCH (09:15)
[2019-08-02] MEDS: Aspirin 81 MG Tab.EC PO SCH (09:15)
[2019-08-02] MEDS: Lactobacillus Rhamnosus GG (Probiotic) Cap PO SCH ×2 (09:15→20:31)
[2019-08-02] MEDS: Multivitamins with Iron/Calcium/Folic Acid/Minerals Tab PO SCH (09:15)
--- NOTE | 2019-08-02 10:45 | PCM.PN ---
- General Info Date of Service: 08/02/19 Subjective Update: No acute events overnight. Low-grade temperature elevation but no true fever. Patient feels well. Minimal cough. Does not feel short of breath. He has been up and walking around. He is off supplemental oxygen. Still little weak but otherwise doing well. Appetite has been good. Functional Status: Reports: Pain Controlled, Tolerating Diet - Patient Data Vitals - Most Recent: Last Vital Signs Temp 36.9 C 08/02/19 07:00 Pulse 82 08/02/19 07:00 Resp 24 H 08/02/19 07:00 BP 110/57 L 08/02/19 07:00 Pulse Ox 93 L 08/02/19 07:00 Weight - Most Recent: 71.486 kg I&O - Last 24 Hours: Intake & Output 08/01/19 08/02/19 08/02/19 22:59 06:59 14:59 Intake Total 400 1640 Output Total 300 Balance 100 1640 Emanuel Results Last 24 Hours: Microbiology 07/31/19 20:01 Aerobic Blood Culture - Preliminary Blood - Arm, Right NO GROWTH AFTER 1 DAY Anaerobic Blood Culture - Preliminary NO GROWTH AFTER 1 DAY Med Orders - Current: Current Medications Acetaminophen (Tylenol) 650 mg PO Q4H PRN PRN Reason: Pain (Mild 1-3)/fever Last Admin: 08/01/19 00:34 Dose: 650 mg Aspirin (Halfprin) 81 mg PO DAILY [facility] Last Admin: 08/02/19 09:15 Dose: 81 mg Azithromycin (Zithromax) 500 mg PO BEDTIME [facility] Last Admin: 08/01/19 20:11 Dose: 500 mg Calcium Carbonate (Caltrate 600+D 1500 Mg-400 Units) 1 tab PO DAILY [facility] Last Admin: 08/02/19 09:15 Dose: 1 tab Donepezil HCl (Aricept) 5 mg PO BEDTIME [facility] Last Admin: 08/01/19 20:11 Dose: 5 mg Ceftriaxone Sodium 1 gm/ (Sodium Chloride) 50 mls @ 100 mls/hr IV Q24H [facility] Last Admin: 08/01/19 19:29 Dose: 100 mls/hr Lactobacillus Rhamnosus (Culturelle) 1 cap PO BID [facility] Last Admin: 08/02/19 09:15 Dose: 1 cap Multivitamins/Minerals (Thera M Plus) 1 tab PO DAILY [facility] Last Admin: 08/02/19 09:15 Dose: 1 tab Pantoprazole Sodium (Protonix) 40 mg PO ACBREAKFAST [facility] Last Admin: 08/02/19 07:52 Dose: 40 mg Simvastatin (Zocor) 20 mg PO BEDTIME [facility] Last Admin: 08/01/19 20:11 Dose: 20 mg Sodium Chloride (Saline Flush) 10 ml FLUSH ASDIRECTED PRN PRN Reason: Keep Vein Open Last Admin: 08/01/19 19:30 Dose: 10 ml Discontinued Medications Lactated Ringer's (Ringers, Lactated) 1,000 mls @ 1,000 mls/hr IV BOLUS ONE Stop: 07/31/19 20:54 Last Admin: 07/31/19 20:00 Dose: 1,000 mls/hr Ceftriaxone Sodium 1 gm/ (Sodium Chloride) 50 mls @ 100 mls/hr IV ONETIME ONE Stop: 07/31/19 20:27 Last Admin: 07/31/19 20:18 Dose: 100 mls/hr Sodium Chloride (Normal Saline) 1,000 mls @ 125 mls/hr IV ASDIRECTED [facility] Last Admin: 08/01/19 08:26 Dose: 125 mls/hr Potassium Chloride (Klor-Con M20) 40 meq PO BIDMEALS [place]YSIA Stop: 08/01/19 17:01 Last Admin: 08/01/19 18:06 Dose: 40 meq - Exam Quality Assessment: No: Supplemental Oxygen General: Alert, Cooperative, No Acute Distress. No: Oriented Lungs: Normal Respiratory Effort, Crackles (Few right lung base) Cardiovascular: Regular Rate, Regular Rhythm GI/Abdominal Exam: Soft, No Distention Extremities: No Pedal Edema Psy/Mental Status: Alert, Normal Affect - Problem List & Annotations (1) Pneumonia SNOMED Code(s): 480938311 Code(s): J18.9 - PNEUMONIA, UNSPECIFIED ORGANISM Status: Acute Current Visit: Yes Qualifiers: Pneumonia type: due to unspecified organism Laterality: right Lung location: lower lobe of lung Qualified Code(s): J18.1 - Lobar pneumonia, unspecified organism (2) Sepsis SNOMED Code(s): 64662612 Code(s): A41.9 - SEPSIS, UNSPECIFIED ORGANISM Status: Acute Current Visit : Yes Qualifiers: Sepsis type: sepsis due to unspecified organism Sepsis acute organ dysfunction status: with acute organ dysfunction Severe sepsis acute organ dysfunction type: acute renal failure Acute renal failure type: unspecified Severe sepsis shock status: without septic shock Qualified Code(s): A41.9 - Sepsis, unspecified organism; R65.20 - Severe sepsis without septic shock; N17.9 - Acute kidney failure, unspecified (3) Hypokalemia SNOMED Code(s): 99547460 Code(s): E87.6 - HYPOKALEMIA Status: Acute Current Visit: Yes (4) Alzheimer's dementia without behavioral disturbance SNOMED Code(s): 61535129 Code(s): G30.9 - ALZHEIMER'S DISEASE, UNSPECIFIED; F02.80 - DEMENTIA IN OTH DISEASES CLASSD ELSWHR W/O BEHAVRL DISTURB Status: Chronic Current Visit: Yes Qualifiers: Alzheimer's disease onset: late-onset Qualified Code(s): G30.1 - Alzheimer' s disease with late onset; F02.80 - Dementia in other diseases classified elsewhere without behavioral disturbance - Problem List Review Problem List Initiated/Reviewed/Updated: Yes - My Orders Last 24 Hours: My Active Orders 08/01/19 09:45 Convert IV to Saline Lock [OM.PC] Routine - Plan Plan:: ASSESSMENT AND PLAN - Right lower lobe pneumonia with sepsis - complicated by acute respiratory failure with hypoxia. Sepsis has resolved and he is off supplemental oxygen. Clinically doing fairly well. Still little bit weak but nearing readiness for discharge. -Continue ceftriaxone and azithromycin -Saline lock IV -Follow-up cultures -Supplement oxygen if needed Hypokalemia - improved with supplementation. Alzheimer's dementia - no behavior issues. -Continue donepezil Maintenance issues - - DVT prophylaxis - SCDs - GI prophylaxis - PPI - Nutrition - regular - Arreola catheter - not indicated Disposition - I would anticipate discharge home tomorrow Yeison Sloan M.D.
[2019-08-02] MEDS: cefTRIAXone 1 GM in Sodium Chloride 0.9% 50 ML IV SCH (20:07)
[2019-08-02] MEDS: Azithromycin 250 MG Tab PO SCH (20:30)
[2019-08-02] MEDS: Simvastatin 20 MG Tab PO SCH (20:31)
[2019-08-02] MEDS: Donepezil 10 MG Tab PO SCH (20:31)
[2019-08-02] MEDS: Acetaminophen 325 MG Tab PO PRN (20:41)
[2019-08-02] MEDS ORDERED: Melatonin 3 MG Tab PO SCH (21:00)
[2019-08-03] MEDS: Acetaminophen 325 MG Tab PO PRN (03:23)
[2019-08-03] MEDS: Pantoprazole 40 MG Tab.CR PO SCH (07:21)
[2019-08-03] MEDS: Calcium Carbonate/Vitamin D3 1500 MG-400 Units Tab PO SCH (08:50)
[2019-08-03] MEDS: Lactobacillus Rhamnosus GG (Probiotic) Cap PO SCH (08:50)
[2019-08-03] MEDS: Multivitamins with Iron/Calcium/Folic Acid/Minerals Tab PO SCH (08:51)
[2019-08-03] MEDS: Aspirin 81 MG Tab.EC PO SCH (08:51)
--- NOTE | 2019-08-03 09:57 | PCM.DCSUM1 ---
Discharge Summary - Hospital Course Brief History: 84-year-old male with late onset Alzheimer's dementia who presented with fever, weakness and shortness of breath. He is admitted for management of right lower lobe pneumonia with sepsis and hypoxic respiratory failure. Diagnosis: Stroke: No - Discharge Data Discharge Date: 08/03/19 Discharge Disposition: Home, W Home Health Agency 06 Condition: Good - Referral to Home Health Date of Face to Face Encounter: 08/03/19 Reason for Homebound Status: weakness, dyspnea after pneumonia and sepsis Primary Care Physician: PCP None Skilled Need: Nursing and PT - Discharge Diagnosis/Problem(s) (1) Pneumonia SNOMED Code(s): 298857659 ICD Code: J18.9 - PNEUMONIA, UNSPECIFIED ORGANISM Status: Acute Current Visit: Yes Qualifiers: Pneumonia type: due to unspecified organism Laterality: right Lung location: lower lobe of lung Qualified Code(s): J18.1 - Lobar pneumonia, unspecified organism (2) Sepsis SNOMED Code(s): 60446100 ICD Code: A41.9 - SEPSIS, UNSPECIFIED ORGANISM Status: Acute Current Visit: Yes Qualifiers: Sepsis type: sepsis due to unspecified organism Sepsis acute organ dysfunction status: with acute organ dysfunction Severe sepsis acute organ dysfunction type: acute renal failure Acute renal failure type: unspecified Severe sepsis shock status: without septic shock Qualified Code(s): A41.9 - Sepsis, unspecified organism; R65.20 - Severe sepsis without septic shock; N17.9 - Acute kidney failure, unspecified (3) Hypokalemia SNOMED Code(s): 12839193 ICD Code: E87.6 - HYPOKALEMIA Status: Acute Current Visit: Yes (4) Alzheimer's dementia without behavioral disturbance SNOMED Code(s): 28196519 ICD Code: G30.9 - ALZHEIMER'S DISEASE, UNSPECIFIED; F02.80 - DEMENTIA IN OTH DISEASES CLASSD ELSWHR W/O BEHAVRL DISTURB Status: Chronic Current Visit: Yes Qualifiers: Alzheimer's disease onset: late-onset Qualified Code(s): G30.1 - Alzheimer' s disease with late onset; F02.80 - Dementia in other diseases classified elsewhere without behavioral disturbance - Patient Summary/Data Consults: Consultations 08/01/19 07:49 PT Evaluation and Treatment [CONS] Routine Please Evaluate and Treat. PT Reason for Consult: Strengthening Pending Discharge: Yes Discharge Disposition: Home w Home Health Special Instructions: OT Screen/Eval May need SNF This query below is only for informational purposes and is not editable. Admission Diagnosis/Problem: Pneumonia 08/01/19 08:04 OT Evaluation and Treatment [CONS] Routine Please Evaluate and Treat. OT Reason for Consult: Strengthening This query below is only for informational purposes and is not editable. Admission Diagnosis/Problem: Pneumonia Hospital Course: Jhonny presented to the emergency room with weakness and increased fatigue and confusion. Workup in the emergency room revealed a right lower lung pneumonia with evidence for sepsis and acute respiratory failure with hypoxia as well as acute kidney injury. He had a leukocytosis with a white blood cell count of more than 19,000. He was started on ceftriaxone and azithromycin after cultures were obtained. He received IV fluids and was admitted to the hospital for further management. Overnight following admission the patient made fairly significant improvement. Sepsis resolved and his lactic acid level normalized. Vital signs normalized. White blood cell count was trending down. Symptomatically he was feeling better but still weak and short of breath. We continued the same antibiotic regimen and had ongoing improvement. His cultures have all been negative. We have been able to wean him off the supplemental oxygen. He has been able to increase his activity. Appetite has been improving. Strength is improving. He has been afebrile. We did provide potassium supplementation with mild hypokalemia. I believe he is safe for discharge at this time. He will be going to his daughter's house for the near future. He will need 2 additional days of azithromycin and for additional days of cefdinir. I did complete a referral to home care to help ease his transition home. We did discuss transition to assisted living but he does not feel he is ready at this time. I do have my concerns about his home safety given his progressing dementia. I encouraged him not to drive at least until his follow- up with primary care. I think he would do well and an assisted living situation but he wishes to stay at home at this time. - Patient Instructions Diet: Regular Diet as Tolerated Activity: As Tolerated Driving: Do Not Drive (until your follow up appointment ) Showering/Bathing: May Shower Notify Provider of: Fever, Increased Pain Other/Special Instructions: 1. You were in the hospital for management of right lower lobe pneumonia with sepsis and hypoxic respiratory failure. Your condition has improved quickly with therapy provided. You will need additional antibiotic therapy as outlined below: -Azithromycin 500 mg twice daily at bedtime for 2 more doses. Your next dose is due tonight. -Cefidinir 300 mg twice daily for 8 more doses. Your next dose is due tonight at bedtime. 2. Continue your usual home medications as previously prescribed. 3. Slowly increase your activity towards your usual amount of activity over the next several days to maybe a couple of weeks. I would recommend that you not drive until your follow-up appointment with your primary care physician. - Discharge Plan *PRESCRIPTION DRUG MONITORING PROGRAM REVIEWED*: No *COPY OF PRESCRIPTION DRUG MONITORING REPORT IN PATIENT YANDY: No Prescriptions/Med Rec: Azithromycin 500 mg PO BEDTIME #2 tablet Cefdinir 300 mg PO BID #8 capsule Home Medications: Home Meds Aspirin [Adult Low Dose Aspirin EC] 81 mg PO DAILY 04/22/14 [History] Multivitamin [Multi-Vitamin Daily] 1 tab PO DAILY 04/22/14 [History] Omeprazole 20 mg PO DAILY 04/22/14 [History] Simvastatin [Zocor] 20 mg PO BEDTIME 04/22/14 [History] Calcium Carbonate/Vitamin D3 [Calcium 600 + Vit D 400 Softgl] 1 tab PO DAILY [History] Terbinafine [LamISIL AT 1% Crm] 1 applic TOP BID 12/04/16 [History] Donepezil HCl 5 mg PO BEDTIME 07/31/19 [History] Azithromycin 500 mg PO BEDTIME #2 tablet 08/03/19 [Rx] Cefdinir 300 mg PO BID #8 capsule 08/03/19 [Rx] Oxygen Therapy Mode: Room Air Patient Handouts: Community-Acquired Pneumonia, Adult Referrals: Elroy Champion NP [Nurse Practitioner] - 08/05/19 2:00 pm (Please arrive 15 minutes early to register for your appointment.) - Discharge Summary/Plan Comment DC Time >30 min.: Yes (35 - setting up home care) - Patient Data Vitals - Most Recent: Last Vital Signs Temp 37.4 C 08/03/19 07:46 Pulse 82 08/03/19 07:46 Resp 22 H 08/03/19 07:46 BP 122/63 08/03/19 07:46 Pulse Ox 95 08/03/19 07:46 Weight - Most Recent: 71.486 kg I&O - Last 24 hours: Intake & Output 08/02/19 08/03/19 08/03/19 22:59 06:59 14:59 Intake Total 950 756 Output Total 150 Balance 950 606 MUSA Results - Last 24 hrs: Microbiology 07/31/19 20:01 Aerobic Blood Culture - Preliminary Blood - Arm, Right NO GROWTH AFTER 2 DAYS Anaerobic Blood Culture - Preliminary NO GROWTH AFTER 2 DAYS Med Orders - Current: Current Medications Acetaminophen (Tylenol) 650 mg PO Q4H PRN PRN Reason: Pain (Mild 1-3)/fever Last Admin: 08/03/19 03:23 Dose: 650 mg Aspirin (Halfprin) 81 mg PO DAILY [facility] Last Admin: 08/03/19 08:51 Dose: 81 mg Azithromycin (Zithromax) 500 mg PO BEDTIME [facility] Last Admin: 08/02/19 20:30 Dose: 500 mg Calcium Carbonate (Caltrate 600+D 1500 Mg-400 Units) 1 tab PO DAILY [facility] Last Admin: 08/03/19 08:50 Dose: 1 tab Donepezil HCl (Aricept) 5 mg PO BEDTIME [facility] Last Admin: 08/02/19 20:31 Dose: 5 mg Ceftriaxone Sodium 1 gm/ (Sodium Chloride) 50 mls @ 100 mls/hr IV Q24H [facility] Last Admin: 08/02/19 20:07 Dose: 100 mls/hr Lactobacillus Rhamnosus (Culturelle) 1 cap PO BID [facility] Last Admin: 08/03/19 08:50 Dose: 1 cap Melatonin (Melatonin) 9 mg PO BEDTIME [facility] Last Admin: 08/02/19 20:30 Dose: 9 mg Multivitamins/Minerals (Thera M Plus) 1 tab PO DAILY [facility] Last Admin: 08/03/19 08:51 Dose: 1 tab Pantoprazole Sodium (Protonix) 40 mg PO ACBREAKFAST [facility] Last Admin: 08/03/19 07:21 Dose: 40 mg Simvastatin (Zocor) 20 mg PO BEDTIME [facility] Last Admin: 08/02/19 20:31 Dose: 20 mg Sodium Chloride (Saline Flush) 10 ml FLUSH ASDIRECTED PRN PRN Reason: Keep Vein Open Last Admin: 08/01/19 19:30 Dose: 10 ml Discontinued Medications Lactated Ringer's (Ringers, Lactated) 1,000 mls @ 1,000 mls/hr IV BOLUS ONE Stop: 07/31/19 20:54 Last Admin: 07/31/19 20:00 Dose: 1,000 mls/hr Ceftriaxone Sodium 1 gm/ (Sodium Chloride) 50 mls @ 100 mls/hr IV ONETIME ONE Stop: 07/31/19 20:27 Last Admin: 07/31/19 20:18 Dose: 100 mls/hr Sodium Chloride (Normal Saline) 1,000 mls @ 125 mls/hr IV ASDIRECTED [facility] Last Admin: 08/01/19 08:26 Dose: 125 mls/hr Potassium Chloride (Klor-Con M20) 40 meq PO BIDMEALS [place] Stop: 08/01/19 17:01 Last Admin: 08/01/19 18:06 Dose: 40 meq - Exam Quality Assessment: Denies: Supplemental Oxygen General: Reports: Alert, Cooperative, No Acute Distress. Denies: Oriented Lungs: Reports: Normal Respiratory Effort, Crackles (few right lower lung ) Cardiovascular: Reports: Regular Rate, Regular Rhythm GI/Abdominal Exam: Soft, No Distention Extremities: No Pedal Edema Psy/Mental Status: Reports: Alert, Normal Affect
[2019-08-03 10:50] VITALS: BP 129/64; PULSE 86
== END 2019-08-03 15:29 | disposition home health service (06) | DRG 871 ==
LOC: JP.ED 19:26 → JP.MS 20:54
PROVIDERS: ADMIT Family Medicine; ATTEND Internal Medicine
DX: J18.1 Lobar pneumonia, unspecified organism (principal); F03.90 Unspecified dementia, unspecified severity, without behavioral disturbance, psychotic disturbance, mood disturbance, and anxiety; Z88.8 Allergy status to other drugs, medicaments and biological substances; A41.9 Sepsis, unspecified organism; J18.9 Pneumonia, unspecified organism; H54.7 Unspecified visual loss; E78.00 Pure hypercholesterolemia, unspecified; J96.01 Acute respiratory failure with hypoxia; N17.9 Acute kidney failure, unspecified; K22.70 Barrett's esophagus without dysplasia; R65.20 Severe sepsis without septic shock; K21.9 Gastro-esophageal reflux disease without esophagitis; W19.XXXA Unspecified fall, initial encounter; E87.6 Hypokalemia; G30.1 Alzheimer's disease with late onset; F02.80 Dementia in other diseases classified elsewhere, unspecified severity, without behavioral disturbance, psychotic disturbance, mood disturbance, and anxiety; E86.0 Dehydration; E78.5 Hyperlipidemia, unspecified; I83.893 Varicose veins of bilateral lower extremities with other complications; N40.0 Benign prostatic hyperplasia without lower urinary tract symptoms; H91.90 Unspecified hearing loss, unspecified ear; Z87.891 Personal history of nicotine dependence; Z79.82 Long term (current) use of aspirin; Z79.899 Other long term (current) drug therapy; Z86.010 Personal history of colon polyps; Z88.1 Allergy status to other antibiotic agents; Z99.81 Dependence on supplemental oxygen
CPT/HCPCS: 36415; 71045; 80048; 81001; 83605; 84484; 85027; 87040; 96365; 99284; J0696; J7050; J7120; 97110-GP; 97116-GP; 97161-GP; 97165-GO; 97530-GP; A9270-GY; J7030

== ENCOUNTER 2022-11-08 17:41 | Emergency (ER) | payer MEDICARE ==
[2022-11-08 18:34] LABS: ESTIMATED GFR 82 mL/min (>60)
[2022-11-08 18:51] VITALS: BP 145/72; PULSE 96
[2022-11-08 18:52] LABS: CORONAVIRUS COVID-19 NAA NEGATIVE (NEGATIVE)
[2022-11-08] MEDS ORDERED: Sodium Chloride 0.9% 75 ML IV SCH (19:00)
[2022-11-08] MEDS ORDERED: Iopamidol 612 MG/ML 100 ML Bottle IV SCH (19:00)
[2022-11-08] MEDS ORDERED: Levofloxacin 500 MG Tab PO ONE (19:55)
== END 2022-11-08 22:10 ==
LOC: JP.ED 17:41
DX: J18.9 Pneumonia, unspecified organism (principal); E78.00 Pure hypercholesterolemia, unspecified; K21.9 Gastro-esophageal reflux disease without esophagitis; N40.0 Benign prostatic hyperplasia without lower urinary tract symptoms; Z88.8 Allergy status to other drugs, medicaments and biological substances; Z79.899 Other long term (current) drug therapy; Z20.822 Contact with and (suspected) exposure to COVID-19
CPT/HCPCS: 0241U; 36415; 71045; 74177; 80053; 81001; 83605; 83880; 84145; 85025; 86140; 87040; 99285; A9270; J3490; Q9967

== ENCOUNTER 2022-11-21 16:33 | Inpatient (IN) | payer MEDICARE ==
[2022-11-21] MEDS ORDERED: Ketorolac 30 MG/ML SDV IM ONE (16:50)
[2022-11-21] MEDS ORDERED: fentaNYL 50 MCG/ML SDV IVPUSH STA (18:43)
[2022-11-21 18:58] LABS: CORONAVIRUS COVID-19 NAA NEGATIVE (NEGATIVE)
[2022-11-21] MEDS ORDERED: Acetaminophen 325 MG Tab PO PRN (19:36)
[2022-11-21] MEDS ORDERED: Magnesium Hydroxide 400 MG/5 ML Susp 30 ML Cup PO PRN (19:36)
[2022-11-21] MEDS ORDERED: Ondansetron 4 MG/2 ML SDV IV PRN (19:36)
[2022-11-21] MEDS ORDERED: Ondansetron 4 MG Tab.DIS PO PRN (19:36)
[2022-11-21] MEDS: Sodium Chloride 0.9% 1,000 ML IV SCH (21:05)
[2022-11-21] MEDS: Pantoprazole 40 MG Tab.CR PO SCH (21:05)
[2022-11-22] MEDS: Sodium Chloride 0.9% 1,000 ML IV SCH ×2 (05:18→19:25)
[2022-11-22] MEDS: Pantoprazole 40 MG Tab.CR PO SCH (08:01)
[2022-11-22] MEDS ORDERED: Propofol 200 MG/20 ML SDV ONE (09:18)
[2022-11-22] MEDS ORDERED: Midazolam 1 MG/ML 2 ML SDV ONE (09:19)
[2022-11-22] MEDS ORDERED: fentaNYL 100 MCG/2 ML SDV ONE (09:19)
[2022-11-22] MEDS ORDERED: ceFAZolin 2 GM in Sodium Chloride 0.9% 50 ML IV ONE (09:30)
[2022-11-22] MEDS ORDERED: Bupivacaine 0.5%/EPINEPHrine 1:200,000 50 ML MDV ONE (09:40)
[2022-11-22] MEDS ORDERED: Lactated Ringers 1,000 ML ONE (10:57)
[2022-11-22] MEDS ORDERED: Morphine 2 MG/ML SYRINGE IVPUSH PRN (12:06)
[2022-11-22] MEDS ORDERED: Docusate Sodium 100 MG Cap PO PRN (12:08)
[2022-11-22] MEDS: traMADol 50 MG Tab PO PRN ×2 (14:18→20:07)
[2022-11-22] MEDS: Donepezil 10 MG Tab PO SCH (20:08)
[2022-11-22] MEDS: Aspirin 325 MG Tab.EC PO SCH (20:08)
[2022-11-23] MEDS: Acetaminophen/HYDROcodone 325-5 MG Tab PO PRN ×3 (03:09→20:36)
[2022-11-23] MEDS: Sodium Chloride 0.9% 1,000 ML IV SCH (05:30)
[2022-11-23] MEDS: Multivitamins with Iron/Calcium/Folic Acid/Minerals Tab PO SCH (08:28)
[2022-11-23] MEDS: Calcium Carbonate/Vitamin D3 1500 MG-400 Units Tab PO SCH (08:28)
[2022-11-23] MEDS: Aspirin 325 MG Tab.EC PO SCH ×2 (08:28→20:36)
[2022-11-23] MEDS: Pantoprazole 40 MG Tab.CR PO SCH (08:28)
[2022-11-23] MEDS ORDERED: Sodium Chloride 0.9% 1,000 ML IV SCH (12:30)
[2022-11-23] MEDS ORDERED: Sodium Phosphate,Monobasic/Sodium Phosphate,Dibasic Enema 133 ML Bottle RECTAL PRN (12:47)
[2022-11-23] MEDS: Bisacodyl 10 MG Supp RECTAL ONE ×2 (13:47→15:30)
[2022-11-23] MEDS: Polyethylene Glycol 3350 Powder 17 GM Packet PO ONE ×2 (13:48→15:30)
[2022-11-23] MEDS: Donepezil 10 MG Tab PO SCH (20:36)
[2022-11-24] MEDS: Acetaminophen/HYDROcodone 325-5 MG Tab PO PRN (08:08)
[2022-11-24] MEDS: Pantoprazole 40 MG Tab.CR PO SCH (08:09)
[2022-11-24] MEDS: Calcium Carbonate/Vitamin D3 1500 MG-400 Units Tab PO SCH (08:09)
[2022-11-24] MEDS: Aspirin 325 MG Tab.EC PO SCH (08:09)
[2022-11-24] MEDS: Multivitamins with Iron/Calcium/Folic Acid/Minerals Tab PO SCH (08:09)
[2022-11-24 10:28] VITALS: BP 121/63; PULSE 97
== END 2022-11-24 13:00 | DRG 482 ==
LOC: JP.ED 16:33 → JP.MS 18:32
PROVIDERS: ADMIT Hospitalist; ATTEND Hospitalist
PROC: 0QS704Z Reposition Left Upper Femur with Internal Fixation Device, Open Approach (ICD-10-PCS; principal; 2022-11-21)
DX: S72.145A Nondisplaced intertrochanteric fracture of left femur, initial encounter for closed fracture (principal); Z20.822 Contact with and (suspected) exposure to COVID-19; G30.9 Alzheimer's disease, unspecified; F02.80 Dementia in other diseases classified elsewhere, unspecified severity, without behavioral disturbance, psychotic disturbance, mood disturbance, and anxiety; Z66 Do not resuscitate; E78.00 Pure hypercholesterolemia, unspecified; H54.7 Unspecified visual loss; K21.9 Gastro-esophageal reflux disease without esophagitis; K22.70 Barrett's esophagus without dysplasia; N40.0 Benign prostatic hyperplasia without lower urinary tract symptoms; Z88.8 Allergy status to other drugs, medicaments and biological substances; Z97.3 Presence of spectacles and contact lenses; Z87.19 Personal history of other diseases of the digestive system; Z97.4 Presence of external hearing-aid; Z86.010 Personal history of colon polyps; Z90.89 Acquired absence of other organs; Z98.890 Other specified postprocedural states; Z79.899 Other long term (current) drug therapy; Z79.1 Long term (current) use of non-steroidal anti-inflammatories (NSAID); W18.30XA Fall on same level, unspecified, initial encounter; Y92.89 Other specified places as the place of occurrence of the external cause
CPT/HCPCS: 0241U; 36415; 73502; 76000; 80048; 83735; 85025; 85027; 93005; 96372; 97110; 97161; 97530; 99223; 99233; 99238; 99285; 93010; A9270-GY; C1713; C1776; J0690; J1885; J2250; J2704; J3010; J3490; J7030; J7120

== ENCOUNTER 2023-07-12 09:02 | Inpatient (IN) | payer MEDICARE ==
[2023-07-12 10:41] LABS: BASOPHILS ABSOLUTE AUTO 0.05 K/uL (0.00-0.10); BASOPHILS PERCENT AUTO 0.4 % (0.1-1.3); EOSINOPHILS PERCENT AUTO 0.2 % (0.0-5.4); HEMATOCRIT 36.5 % (38.4-49.7); HEMOGLOBIN 12.7 g/dL (12.9-16.9); IMMATURE GRAN PERCENT AUTO 0.8 % (0.0-0.7); LYMPHOCYTES PERCENT AUTO 3.9 % (11.4-47.7); MEAN CORPUSCULAR HEMOGLOBIN 35.8 pg (31.6-35.5); MEAN CORPUSCULAR HGB CONC 34.8 g/dL (31.6-35.5); MEAN CORPUSCULAR VOLUME 102.8 fL (81.4-99.0); MONOCYTES ABSOLUTE AUTO 0.49 K/uL (0.20-0.90); MONOCYTES PERCENT AUTO 3.8 % (3.3-12.6); NEUTROPHILS ABSOLUTE AUTO 11.79 K/uL (1.0-7.6); NEUTROPHILS PERCENT AUTO 90.9 % (40.0-78.1); PLATELET COUNT,PLT 235 K/uL (130-375); RED BLOOD CELL COUNT 3.55 M/uL (4.14-5.76)
[2023-07-12 10:51] LABS: EOSINOPHILS ABSOLUTE AUTO 0.02 K/uL (0.00-0.40)
[2023-07-12 10:55] LABS: ANION GAP 9.8 mmol/L (5.0-14.0); CALCIUM 8.5 mg/dL (8.5-10.1); CREATININE 0.7 mg/dL (0.8-1.3); EST CRCL DRUG DOSING (CG) 61.96 mL/min; POTASSIUM,K 3.8 mmol/L (3.6-5.2)
[2023-07-12 10:57] LABS: APPEARANCE,URINE CLEAR (CLEAR); BILIRUBIN,URINE NEGATIVE (NEGATIVE); COLOR,URINE YELLOW (YELLOW); GLUCOSE,URINE NEGATIVE (NEGATIVE); KETONES,URINE NEGATIVE (NEGATIVE); LEUKOCYTE ESTERASE,URINE NEGATIVE (NEGATIVE); NITRITE,URINE NEGATIVE (NEGATIVE); OCCULT BLOOD,URINE NEGATIVE (NEGATIVE); PH,URINE 8.5 (5.0-8.0); PROTEIN,URINE TRACE mg/dL (NEGATIVE)
[2023-07-12 11:05] LABS: EPITHELIAL CELLS,URINE NOT SEEN; RBC,URINE 0-5 (0-5); WBC,URINE 0-5 (0-5)
[2023-07-12 11:06] LABS: AMORPHOUS SEDIMENT,URINE NOT SEEN; BACTERIA,URINE NOT SEEN; MUCUS,URINE NOT SEEN
[2023-07-12] MEDS ORDERED: Ondansetron 4 MG Tab.DIS PO PRN (11:29)
[2023-07-12] MEDS ORDERED: Sennosides/Docusate Sodium 50-8.6 MG Tab PO PRN (11:29)
[2023-07-12] MEDS ORDERED: Magnesium Hydroxide 400 MG/5 ML Susp 30 ML Cup PO PRN (11:29)
[2023-07-12] MEDS ORDERED: Ondansetron 4 MG/2 ML SDV IV PRN (11:29)
[2023-07-12] MEDS ORDERED: Naloxone 0.4 MG/ML SDV IVPUSH PRN (11:29)
[2023-07-12] MEDS: HYDROmorphone 1 MG/ML Syringe IVPUSH PRN ×2 (12:05→23:09)
[2023-07-12] MEDS: Sodium Chloride 0.9% 1,000 ML IV SCH ×2 (12:05→20:26)
[2023-07-12] MEDS: Divalproex Sodium Delayed-Release 125 MG Cap.Sprink PO SCH ×2 (13:57→20:28)
[2023-07-12] MEDS: Acetaminophen 500 MG Tab PO SCH ×2 (13:57→20:28)
[2023-07-12] MEDS ORDERED: Propofol 200 MG/20 ML SDV ONE (14:00)
[2023-07-12] MEDS ORDERED: Cephalexin 250 MG Cap PO SCH (14:00)
[2023-07-12] MEDS ORDERED: fentaNYL 100 MCG/2 ML SDV ONE (14:00)
[2023-07-12] MEDS ORDERED: Midazolam 1 MG/ML 2 ML SDV ONE (14:00)
[2023-07-12] MEDS ORDERED: Bupivacaine 0.5% 50 ML MDV ONE (15:56)
[2023-07-12] MEDS ORDERED: ceFAZolin 2 GM in Premix Bag 1 BAG IV ONE (16:00)
[2023-07-12] MEDS: QUEtiapine 25 MG Tab PO SCH (20:28)
[2023-07-12] MEDS: Melatonin 3 MG Tab PO SCH (20:28)
[2023-07-13 04:54] LABS: HEMATOCRIT 32.6 % (38.4-49.7); HEMOGLOBIN 11.2 g/dL (12.9-16.9); MEAN CORPUSCULAR HEMOGLOBIN 35.7 pg (31.6-35.5); MEAN CORPUSCULAR HGB CONC 34.4 g/dL (31.6-35.5); MEAN CORPUSCULAR VOLUME 103.8 fL (81.4-99.0); RED BLOOD CELL COUNT 3.14 M/uL (4.14-5.76); WHITE BLOOD CELL COUNT,WBC 8.8 K/uL (3.2-11.0)
[2023-07-13 05:15] LABS: CALCIUM 8.2 mg/dL (8.5-10.1); CREATININE 0.8 mg/dL (0.8-1.3); EST CRCL DRUG DOSING (CG) 58.53 mL/min; POTASSIUM,K 4.3 mmol/L (3.6-5.2)
[2023-07-13 05:25] LABS: ANION GAP 13.3 mmol/L (5.0-14.0)
[2023-07-13] MEDS: oxyCODONE 5 MG Tab PO PRN ×2 (05:28→10:10)
[2023-07-13] MEDS: Sodium Chloride 0.9% 1,000 ML IV SCH (06:29)
[2023-07-13] MEDS: Divalproex Sodium Delayed-Release 125 MG Cap.Sprink PO SCH ×3 (08:06→20:57)
[2023-07-13] MEDS: Acetaminophen 500 MG Tab PO SCH ×3 (08:06→20:57)
[2023-07-13] MEDS: Aspirin 325 MG Tab.EC PO SCH ×2 (08:06→20:57)
[2023-07-13] MEDS: Pantoprazole 40 MG Tab.CR PO SCH (08:06)
[2023-07-13] MEDS: HYDROmorphone 0.5 MG/0.5 ML Syringe IVPUSH PRN (14:02)
[2023-07-13] MEDS: Melatonin 3 MG Tab PO SCH (20:56)
[2023-07-13] MEDS: QUEtiapine 25 MG Tab PO SCH (20:58)
[2023-07-14] MEDS: HYDROmorphone 0.5 MG/0.5 ML Syringe IVPUSH PRN (07:27)
[2023-07-14] MEDS: Acetaminophen 500 MG Tab PO SCH ×3 (08:12→20:32)
[2023-07-14] MEDS: Pantoprazole 40 MG Tab.CR PO SCH (08:12)
[2023-07-14] MEDS: Divalproex Sodium Delayed-Release 125 MG Cap.Sprink PO SCH ×3 (08:12→20:31)
[2023-07-14] MEDS: Aspirin 325 MG Tab.EC PO SCH ×2 (08:12→20:31)
[2023-07-14] MEDS ORDERED: oxyCODONE 5 MG Tab PO PRN (09:08)
[2023-07-14] MEDS: traMADol 50 MG Tab PO PRN (17:13)
[2023-07-14] MEDS: Melatonin 3 MG Tab PO SCH (20:31)
[2023-07-14] MEDS: QUEtiapine 25 MG Tab PO SCH (20:32)
[2023-07-15 05:59] LABS: HEMATOCRIT 26.3 % (38.4-49.7); HEMOGLOBIN 9.1 g/dL (12.9-16.9); MEAN CORPUSCULAR HGB CONC 34.6 g/dL (31.6-35.5); RED BLOOD CELL COUNT 2.53 M/uL (4.14-5.76); WHITE BLOOD CELL COUNT,WBC 7.3 K/uL (3.2-11.0)
[2023-07-15 06:19] LABS: CALCIUM 8.4 mg/dL (8.5-10.1); CREATININE 0.8 mg/dL (0.8-1.3); EST CRCL DRUG DOSING (CG) 58.53 mL/min; POTASSIUM,K 3.6 mmol/L (3.6-5.2)
[2023-07-15 06:23] LABS: ANION GAP 11.6 mmol/L (5.0-14.0)
[2023-07-15] MEDS: Pantoprazole 40 MG Tab.CR PO SCH (08:04)
[2023-07-15] MEDS: Acetaminophen 500 MG Tab PO SCH ×3 (08:04→20:00)
[2023-07-15] MEDS: Aspirin 325 MG Tab.EC PO SCH ×2 (08:04→20:00)
[2023-07-15] MEDS: Divalproex Sodium Delayed-Release 125 MG Cap.Sprink PO SCH ×3 (08:04→20:00)
[2023-07-15] MEDS: traMADol 50 MG Tab PO PRN ×3 (08:08→20:02)
[2023-07-15] MEDS ORDERED: Sodium Chloride 0.9% 1,000 ML IV SCH (10:00)
[2023-07-15] MEDS ORDERED: Ketorolac 15 MG/ML SDV IVPUSH ONE (17:52)
[2023-07-15] MEDS ORDERED: Bisacodyl 10 MG Supp RECTAL ONE (17:57)
[2023-07-15] MEDS: Melatonin 3 MG Tab PO SCH (20:00)
[2023-07-15] MEDS: QUEtiapine 25 MG Tab PO SCH (20:02)
[2023-07-16] MEDS: traMADol 50 MG Tab PO PRN ×2 (05:47→12:21)
[2023-07-16] MEDS: Aspirin 325 MG Tab.EC PO SCH (08:53)
[2023-07-16] MEDS: Divalproex Sodium Delayed-Release 125 MG Cap.Sprink PO SCH (08:53)
[2023-07-16] MEDS: Pantoprazole 40 MG Tab.CR PO SCH (08:54)
[2023-07-16] MEDS: Acetaminophen 500 MG Tab PO SCH (08:54)
[2023-07-16 11:23] VITALS: BP 118/47; PULSE 75
== END 2023-07-16 13:50 | DRG 482 ==
LOC: JP.ED 09:02 → JP.MS 11:12
PROVIDERS: ADMIT Internal Medicine; ATTEND Internal Medicine
PROC: 0QS604Z Reposition Right Upper Femur with Internal Fixation Device, Open Approach (ICD-10-PCS; principal; 2023-07-12 14:30)
DX: S72.141A Displaced intertrochanteric fracture of right femur, initial encounter for closed fracture (principal); S72.144A Nondisplaced intertrochanteric fracture of right femur, initial encounter for closed fracture; G30.9 Alzheimer's disease, unspecified; S50.01XA Contusion of right elbow, initial encounter; G30.1 Alzheimer's disease with late onset; F02.80 Dementia in other diseases classified elsewhere, unspecified severity, without behavioral disturbance, psychotic disturbance, mood disturbance, and anxiety; N40.0 Benign prostatic hyperplasia without lower urinary tract symptoms; Z66 Do not resuscitate; E78.00 Pure hypercholesterolemia, unspecified; K21.9 Gastro-esophageal reflux disease without esophagitis; N40.1 Benign prostatic hyperplasia with lower urinary tract symptoms; Z20.822 Contact with and (suspected) exposure to COVID-19; H91.90 Unspecified hearing loss, unspecified ear; Z98.890 Other specified postprocedural states; Z86.010 Personal history of colon polyps; Z79.82 Long term (current) use of aspirin; Z79.899 Other long term (current) drug therapy; W19.XXXA Unspecified fall, initial encounter
CPT/HCPCS: 36415; 73502 ×2; 80048; 81001; 85025; 99285; U0002; 51702; 76000; 85027; 97110-GP; 97161-GP; 97165-GO; 97530-GP; 99223; 99233; 99238; A9270-GY; C1713; C1776; J0690; J1170; J1885; J2250; J2704; J3010; J3490; J7030